=== PATIENT | male | born 1950 | race Caucasian/White ===

== ENCOUNTER 2020-05-13 06:16 | Observation (INO) | payer MEDICARE, OTHER ==
[~2020-05-13] VITALS: Ht 175.3 cm; Wt 89.3 kg
[~2020-05-13 06:16] MED LIST: ALLO300T PO; ATOR20TA PO; LEVO112T2 PO; METO25TA91 PO; NIAC500T PO; RIVA20TA PO; SOTA80TA18 PO; WARF-36 PO; WARF7.5T46 PO
[2020-05-13] MEDS: SODIUM CHLORIDE 0.9% 1,000 ML IV SCH ×3 (07:00→21:07)
[2020-05-13 07:13] VITALS: BP 138/71
[2020-05-13 07:24] LABS: BASOPHILS % (AUTO) 1 % (0-1); EOSINOPHILS % (AUTO) 5 % (1-7); LYMPHOCYTES % (AUTO) 27 % (22-44); MEAN CORPUSCULAR HEMOGLOBIN 35.8 pg (27.5-34.5); MEAN CORPUSCULAR HGB CONC 33.9 g/dL (33.2-36.2); MEAN PLATELET VOLUME 9.5 fL (7.4-10.4); MONOCYTES % (AUTO) 6 % (2-9); NEUTROPHILS % (AUTO) 61 % (42-75); PLATELET COUNT 196 x10^3/uL (130-400); RED BLOOD COUNT 4.18 x10^6/uL (4.38-5.82); RED CELL DISTRIBUTION WIDTH 13.7 % (9.4-14.8)
[2020-05-13 07:34] LABS: ANION GAP 4 mmol/L (5-15); CALCIUM 9.4 mg/dL (8.5-10.1); CHLORIDE 109 mmol/L (98-107); CREATININE 1.06 mg/dL (0.7-1.3)
[2020-05-13] MEDS ORDERED: CEFAZOLIN 1,000 MG ONE (07:47)
[2020-05-13] MEDS ORDERED: FENTANYL PF 100 MCG/2ML ONE ×2 (07:47→09:07)
[2020-05-13] MEDS ORDERED: MIDAZOLAM 1 MG/ML, 5ML ONE ×2 (07:47→09:07)
[2020-05-13] MEDS ORDERED: CEFAZOLIN PMX 1GM/50ML 50 ML ONE (07:47)
[2020-05-13] MEDS ORDERED: LIDOCAINE 2%, 20ML ONE (07:47)
[2020-05-13 08:10] LABS: MD SCAN
[2020-05-13] MEDS ORDERED: ACETAMINOPHEN 325 MG TABLET PO PRN (10:00)
[2020-05-13] MEDS ORDERED: HOLD MEDICATION MC PRN (10:00)
[2020-05-13 10:18] VITALS: BP 127/73
[2020-05-13 12:04] VITALS: BP 134/84
[2020-05-13 14:21] VITALS: BP 111/70
[2020-05-13] MEDS: CEFAZOLIN PMX 1GM/50ML 50 ML IVPB SCH (15:38)
[2020-05-13 19:04] VITALS: BP 129/75
[2020-05-13] MEDS: SOTALOL 120MG TABLET PO SCH (20:13)
[2020-05-13] MEDS: SODIUM CHLORIDE FLUSH 10ML SYR IVF SCH (20:14)
[2020-05-13] MEDS ORDERED: ATORVASTATIN 20 MG TABLET PO SCH (21:00)
[2020-05-14] MEDS: CEFAZOLIN PMX 1GM/50ML 50 ML IVPB SCH (00:56)
[2020-05-14 00:57] VITALS: BP 117/74
[2020-05-14] MEDS ORDERED: LEVOTHYROXINE 112 MCG TABLET PO SCH (06:00)
[2020-05-14] MEDS: SODIUM CHLORIDE 0.9% 1,000 ML IV SCH (07:00)
[2020-05-14 07:41] VITALS: BP 115/74
[2020-05-14 08:02] VITALS: BP 127/66
[2020-05-14] MEDS: SOTALOL 120MG TABLET PO SCH (08:23)
[2020-05-14] MEDS ORDERED: SOTA120T14 PO (08:59)
[2020-05-14] MEDS ORDERED: ALLOPURINOL 300 MG TABLET PO SCH (09:00)
[2020-05-14] MEDS: SODIUM CHLORIDE FLUSH 10ML SYR IVF SCH (09:00)
[2020-05-14] MEDS ORDERED: RIVAROXABAN 20 MG TABLET PO SCH (09:00)
== END 2020-05-14 11:12 | disposition home or self-care (01) ==
LOC: CACL 06:16 → ORIP 09:37 → 5SO 09:39 → CACL 11:15 → 5SO 17:50 → DCLOUNGE 05-14 11:05
PROVIDERS: ADMIT Internal Medicine Cardiovascular Disease; ATTEND Internal Medicine Cardiovascular Disease
DX: I49.5 Sick sinus syndrome (principal); I48.0 Paroxysmal atrial fibrillation; I82.91 Chronic embolism and thrombosis of unspecified vein; E78.5 Hyperlipidemia, unspecified; I10 Essential (primary) hypertension; G47.30 Sleep apnea, unspecified; R94.31 Abnormal electrocardiogram [ECG] [EKG]; F10.10 Alcohol abuse, uncomplicated; Z79.01 Long term (current) use of anticoagulants; Z79.899 Other long term (current) drug therapy; Z86.718 Personal history of other venous thrombosis and embolism
CPT/HCPCS: 33208; 36415; 71045; 71046; 80048; 85025; 96361; 96365; 96366; 99156; 99157; C1779; C1785; C1892; G0378; J0690; J2250; J3010; J3490; J7030

== ENCOUNTER 2021-01-03 04:52 | Emergency (ER) | payer BC, MEDICARE, OTHER ==
[~2021-01-03 04:52] MED LIST changes: +SOTA120T14 PO
[2021-01-03] MEDS ORDERED: ONDANSETRON 2MG/ML, 2ML ONE (08:14)
[2021-01-03] MEDS ORDERED: HEPARIN 5,000 UNITS/ML, 1ML ONE (08:25)
== END 2021-01-03 05:01 ==
LOC: EDBD 04:52 → ED 04:55
DX: Z53.21 Procedure and treatment not carried out due to patient leaving prior to being seen by health care provider (principal)